=== PATIENT | male | born 1985 | race Caucasian/White ===

== ENCOUNTER 2023-06-04 11:49 | Emergency (ER) | payer OTHER, SELFPAY ==
--- NOTE | 2023-06-04 11:54 | ED.GENADULT ---
HPI - General Adult General Chief complaint: Animal Bite Stated complaint: cat bite Time Seen by Provider: 06/04/23 12:02 Source: patient Mode of arrival: ambulatory Limitations: no limitations History of Present Illness HPI narrative: 37-year-old male presents with cat bites and scratches to bilateral upper extremities, patient reports he was trying to get his cat carrier, the cat got mad and attacked him. CT is up-to-date on immunizations. Patient unclear when his last tetanus shot was. Denies numbness, tingling, fevers, chills, pain to extremities. Related Data Previous Rx's Medication Instructions Recorded azithromycin 250 mg tablet See Rx Instructions PO .COMPLEX #6 06/04/23 tabs doxycycline hyclate 100 mg capsule 100 mg PO BID 10 days #20 caps 06/04/23 Allergies Allergy/AdvReac Type Severity Reaction Status Date / Time penicillin V Allergy Unknown Verified 10/12/17 00:00 PENICILLIN Allergy Unknown Uncoded 01/12/17 00:00 Review of Systems Review of Systems: Yes all other systems are reviewed and are negative [facility] Past Medical History Attestation statement: The following information was validated with the patient. Source: old records reviewed and nursing notes reviewed Physical Exam ED Vital Signs: Vital Signs - 24 hr 06/04/23 11:57 Temperature 97.7 F Pulse Rate 92 Respiratory Rate 16 Blood Pressure 124/75 Pulse Oximetry 95 Oxygen Delivery Method Room Air BMI result Body Mass Index 17.2 vss Appearance: Alert.? Oriented X3.? No acute distress.? Head: Normocephalic, atraumatic, no step-offs or deformities Eyes: Pupils equal, round and reactive to light.? Neck: Normal inspection.? Neck supple.? CVS: Pulses normal.? Respiratory: No respiratory distress. Abdomen: Soft and nontender.? Skin: Skin warm and dry.? Normal skin color.? Normal skin turgor.? Extremities:5/5 strength to bilateral upper and lower extremities + multiple cat scratches to b/l hands and bites b/l 2+ radial pulses. Normal sensation distally. Normal cap refil. Neuro: Oriented X 3.? No motor deficit.? No sensory deficit. Course Reevaluation(s) Reevaluation #1: Patient to be discharged from the waiting room. Educated patient on diagnosis and treatment plan, answered all question, patient verbalizes understanding. At this time patient will be discharged home, advised to return with new or worsening symptoms. Educated on worrisome signs and symptoms and when to return. At this time I feel comfortable discharge home. Time: 12:06 Medical Decision Making Medical Decision Making [facility] Narrative: 1204 37-year-old male presents with cat bites and scratches to bilateral upper extremities. This happened prior to arrival Physical exam multiple cat bites and scratches to bilateral upper extremities. Neurovascular status intact History and physical exam concerning for cat bites and scratches. With the potential of them getting infected. No active signs of cellulitis at this time or lacerations requiring repair. No signs of neurovascular compromise or acute threat to limb. Unlikely fractures or dislocations. No signs of septic joint Plan at this time will discharge from triage with doxycycline as patient has amoxicillin allergy and will also cover with a Z-Milton. Differential Diagnosis Differential Diagnoses: The differential diagnosis associated with the presentation includes History and physical exam concerning for cat bites and scratches. With the potential of them getting infected. No active signs of cellulitis at this time or lacerations requiring repair. No signs of neurovascular compromise or acute threat to limb. Unlikely fractures or dislocations. Admission/Observation Consideration of admission/observation: Escalation of care including admission/observation considered No indication Tests considered The following testing was considered but not selected: No indication for labs. Prescription Management I considered prescription management with: Antibiotic Critical Care Time Critical Care Time Critical Care Time: No Discharge Plan Discharge Clinical Impression: Cat bite, Cat scratch Patient Disposition: Home, Self-Care Instructions: Animal Bite (ED) Additional Instructions: Take your medications as prescribed. If you were prescribed antibiotics today, it is important that you take your medication to their entirety, do not skip any doses, do not finish them early. Follow-up with your primary care provider this week. Return to the emergency department with new or worsening symptoms. In case of emergency call 911 Return w/ any signs of infection fevers, redness, drainage, pain swelling Prescriptions: New doxycycline hyclate 100 mg capsule 100 mg PO BID 10 Days Qty: 20 0RF azithromycin 250 mg tablet See Rx Instructions .ROUTE .COMPLEX Qty: 6 0RF Rx Instructions: For 250 mg dose pack: take 500 mg today (day 1), then 250 mg for 4 days (days 2-5) Referrals: Physician,Unknown J [Primary Care Provider] - 2 days
[2023-06-04 11:57] VITALS: BP 124/75; PULSE 92; RESP 16; TEMP 36.5; O2SAT 95; BMI 17.2
[2023-06-04] MEDS: Diphth,Pertus(ACell),Tet Adult 0.5 ML SYRINGE IM (12:19)
[2023-06-04 12:29] VITALS: BP 124/75; PULSE 92; RESP 16; TEMP 36.5; O2SAT 95
== END 2023-06-04 12:31 | disposition home or self-care (01) ==
PROVIDERS: Emergency Provider Student in an Organized Health Care Education/Training Program; PCP Family Medicine
DX: S41.152A Open bite of left upper arm, initial encounter (principal); S41.151A Open bite of right upper arm, initial encounter; S40.812A Abrasion of left upper arm, initial encounter; S40.811A Abrasion of right upper arm, initial encounter; W55.03XA Scratched by cat, initial encounter; Y93.89 Activity, other specified; Y92.9 Unspecified place or not applicable; Y99.9 Unspecified external cause status; Z88.0 Allergy status to penicillin
CPT/HCPCS: 90471; 90715; 99283; 99284

== ENCOUNTER 2023-08-27 14:20 | Emergency (ER) | payer BC, SELFPAY ==
[2023-08-27 14:39] VITALS: BP 134/76; PULSE 62; RESP 18; TEMP 36.6; O2SAT 98; BMI 17.8
--- NOTE | 2023-08-27 14:47 | ED.DENTAL ---
HPI - Dental/Oral General Chief complaint: Dental/Oral Stated complaint: dental pain Time Seen by Provider: 08/27/23 14:45 Source: patient Mode of arrival: ambulatory Limitations: no limitations History of Present Illness ED Provider: john MUIR Narrative: Patient is a 37-year-old male presenting to the emergency department with complaint dental pain to left lower jaw since Tuesday. Patient states pain is in the area where he has previously had a root canal and a crown. Denies any discharge or drainage from the area. Denies fevers. Denies any difficulty swallowing. Does report increased pain with chewing/eating. Has appointment with dentist on Tuesday. MD Complaint: tooth pain Teeth map: 1. Onset (ago): day(s) Duration: worsening Severity: severe Relieving factors: nothing Exacerbating factors: chewing Treatment prior to arrival: oral analgesic Related Data Previous Rx's ?Medication ?Instructions ?Recorded azithromycin 250 mg tablet See Rx Instructions PO .COMPLEX #6 06/04/23 tabs doxycycline hyclate 100 mg capsule 100 mg PO BID 10 days #20 caps 06/04/23 clindamycin HCl 150 mg capsule 150 mg PO TID #21 caps 08/27/23 clindamycin HCl 300 mg capsule 300 mg PO TID #21 caps 08/27/23 oxycodone 5 mg tablet 5 mg PO Q6H PRN severe pain (scale 08/27/23 score 7-10) #12 tabs Allergies Allergy/AdvReac Type Severity Reaction Status Date / Time penicillin V Allergy Unknown Rash Verified 08/27/23 14:41 PENICILLIN Allergy Unknown Rash Uncoded 08/27/23 14:41 Review of Systems Review of Systems: As per HPI Yes all other systems are reviewed and are negative Constitutional: Constitutional: Reports as per HPI Physical Exam Vital Signs: Vital Signs: Last Vital Signs Temp 98 F 08/27/23 14:39 Pulse 62 08/27/23 14:39 Resp 18 08/27/23 14:39 BP 134/76 08/27/23 14:39 Pulse Ox 98 08/27/23 14:39 O2 Del Method Room Air 08/27/23 14:39 BMI result Body Mass Index 17.8 Vital signs have been reviewed and appear to be correct. Blood pressure normal. Heart rate normal. Respiratory rate normal. Temperature normal. Oxygen saturation normal. Const: General: cooperative, healthy appearing and no acute distress Orientation/consciousness: oriented to person, oriented to place, oriented to time and patient oriented x3 Limitations: no limitations HEENT: Head: Yes normocephalic and Yes atraumatic Ears: external ears normal General nose exam: Normal external nose present Face and sinus: Yes face symmetric Mouth: Normal oral and palatal mucosa present, lip normal, tongue normal, oropharynx normal, moist mucous membranes, no drooling, no trismus and No restricted motion Teeth and gingiva: dentition normal and abnormal tooth and associated gingiva lower left tender; without associated gingival fluctuance Teeth image: 1. crown, gingival erythema, tenderness to palpation, no drainage Throat: Yes uvula midline Eyes: Pupils: Equal, round and reactive pupils present Neck: Neck: Yes normal visual inspection, Yes no lymphadenopathy and Yes supple Resp: Effort & Inspection: normal respiratory effort and able to speak in complete sentences Auscultation: clear to auscultation bilaterally Cardio: Rate: regular rate Rhythm: regular rhythm Heart sounds: S1 normal heart sound present and S2 normal heart sound present Skin: General skin exam: elasticity normal and turgor normal Neuro: General: oriented to person, oriented to place, oriented to time, patient oriented x3, moves all extremities, no focal motor deficits and CN's II-XI intact bilaterally Cranial nerves: Yes Equal, round and reactive pupils present Cognition (Neuro): normal cognition Extrem: General: Yes full ROM, Yes no pedal edema and Yes no calf tenderness Psych: Mental Status: mental status grossly normal Affect: normal affect Thought process: Normal thought process present Medical Decision Making Medical Decision Making [facility] Narrative: Patient is a 37-year-old male presenting to the emergency department with complaint dental pain to left lower jaw since Tuesday. On exam patient is awake, A+Ox3, VS WNL, afebrile, normal neurological exam without focal deficits, physical exam findings as above. Given reported symptoms and physical exam findings, initial differential includes dental pain, dental infection, dental abscess. No evidence of abscess on physical exam. Will treat with clindamycin as patient has PCN allergy, as well as oxycodone for severe pain. Advised patient to eat soft foods, swish with salt water, follow up with dental appointment. Return precautions discussed. Patient verbalized understanding of and agreement with plan. Differential Diagnosis Differential Diagnoses: The differential diagnosis associated with the presentation includes As per [facility] External Record Review External record reviewed: Inpatient record, Office record and Outpatient record Prescription Management I considered prescription management with: Pain Medication and Antibiotic Discharge Plan Discharge Clinical Impression: Toothache Patient Disposition: Home, Self-Care Instructions: Toothache (ED) Additional Instructions: You were evaluated in the emergency department today for complaint of dental pain. You are being treated for a dental infection with antibiotics. Please complete the full course of antibiotics as prescribed even if your symptoms improve. IT IS IMPORTANT THAT YOU FOLLOW UP WITH YOUR DENTIST. We recommend that you take 600 mg of ibuprofen or 650 mg Tylenol every 6 hours as needed for pain. If necessary, you can alternate these medications every 3 hours. For example, at 9:00 a.m. take Tylenol, then at noon take ibuprofen, then at 3:00 p.m. take Tylenol, etc.. You are being prescribed a short course of oxycodone for severe pain. Do not take this medication with alcohol. We recommend eating soft foods and avoid chewing on affected tooth. You can also gargle with salt water several times daily. Return to the emergency department if you develop worsening pain, swelling, difficulty swallowing, difficulty breathing, fever, or any other concerning symptoms. Prescriptions: New clindamycin HCl 300 mg capsule 300 mg PO TID Qty: 21 0RF Rx Instructions: Take with 150mg capsule for total dose of 450mg each dose clindamycin HCl 150 mg capsule 150 mg PO TID Qty: 21 0RF Rx Instructions: Take with 300mg capsule at each dose for total dose of 450mg oxycodone 5 mg tablet 5 mg PO Q6H PRN (Reason: severe pain (scale score 7-10)) Qty: 12 0RF Rx Instructions: Partial Fill upon patient request. No Action doxycycline hyclate 100 mg capsule 100 mg PO BID 10 Days Qty: 20 0RF azithromycin 250 mg tablet See Rx Instructions .ROUTE .COMPLEX Qty: 6 0RF Rx Instructions: For 250 mg dose pack: take 500 mg today (day 1), then 250 mg for 4 days (days 2-5) Print Language: Greek
[2023-08-27 15:12] VITALS: BP 134/76; PULSE 62; RESP 18; TEMP 36.6; O2SAT 98
== END 2023-08-27 15:15 | disposition home or self-care (01) ==
PROVIDERS: Emergency Provider Emergency Medicine; PCP Family Medicine
DX: K08.89 Other specified disorders of teeth and supporting structures (principal)
CPT/HCPCS: 99282; 99283

== ENCOUNTER 2024-05-22 13:45 | Emergency (ER) | payer BC, SELFPAY ==
--- NOTE | ~2024-05-22 | XR_ITS ---
EXAMINATION: XR ABDOMEN 1 VIEW (KUB) HISTORY: pain COMPARISON: There are no prior studies for comparison. FINDINGS: A single upright view of the abdomen is submitted. The bowel gas pattern is unremarkable, without evidence of mechanical obstruction. There is a phlebolith in the left hemipelvis. There are no abnormal soft tissue masses. The bones are intact. XR/XR KUB IMPRESSION: Unremarkable bowel gas pattern. Electronically signed by: Heladio Savage MD 05/22/2024 02:21 PM EDT
--- NOTE | ~2024-05-22 | CT_ITS ---
CLINICAL HISTORY: abd. pain v, R O SBO, history hernia repair CT abdomen and pelvis with contrast Comparison: CT - CT ABDOMEN PELVIS W IV CON - 05/22/24 19:09 EDT Findings: The lung bases are clear. The gallbladder and solid organs are within normal limits. No renal stones. No bowel obstruction, pneumoperitoneum, or pneumatosis. Pelvic contents unremarkable. Normal appendix. No acute fracture. IMPRESSION: No acute findings. No evidence of bowel obstruction. This document has been electronically signed by: An Queen MD on 05/22/2024 19:57:27
[2024-05-22 13:58] VITALS: BP 108/60; PULSE 53; RESP 20; TEMP 36.4; O2SAT 100; BMI 17.8
--- NOTE | 2024-05-22 13:59 | ED.GENADULT ---
HPI - General Adult General Chief complaint: Abdominal Pain Stated complaint: Dizziness, chest pain Time Seen by Provider: 05/22/24 18:07 Source: patient Mode of arrival: ambulatory Limitations: no limitations History of Present Illness ED Provider: DR. Hudson HPI narrative: 38-year-old male came in for evaluation of abdominal pain since this morning. Patient woke up this morning with mid abdominal pain and radiating burning pain to the chest, patient initially had nausea vomiting with the pain, had a normal bowel movement this morning before the vomiting started, passing flatus. Pain is localized to the mid abdomen with no radiation, vomiting has improved while waiting in the emergency department. No fever, no chills, no blood in the vomit or stool. Patient had similar pain twice in his life about 10 years ago require upper endoscopy patient reported inflammation in the stomach? Not on PPI. Currently patient feels cold. Related Data Previous Rx's ?Medication ?Instructions ?Recorded azithromycin 250 mg tablet See Rx Instructions PO .COMPLEX #6 06/04/23 tabs doxycycline hyclate 100 mg capsule 100 mg PO BID 10 days #20 caps 06/04/23 clindamycin HCl 150 mg capsule 150 mg PO TID #21 caps 08/27/23 clindamycin HCl 300 mg capsule 300 mg PO TID #21 caps 08/27/23 oxycodone 5 mg tablet 5 mg PO Q6H PRN severe pain (scale 08/27/23 score 7-10) #12 tabs omeprazole 40 mg capsule,delayed 40 mg PO DAILY #14 caps 05/22/24 release Allergies Allergy/AdvReac Type Severity Reaction Status Date / Time penicillin V Allergy Unknown Rash Verified 05/22/24 14:02 PENICILLIN Allergy Unknown Rash Uncoded 08/27/23 14:41 Review of Systems Review of Systems: all other systems are reviewed and are negative Constitutional: Reports as per HPI and Reports no additional constitutional complaints Eyes: Reports as per HPI and Reports no additional eye complaints Reports system reviewed and no additional complaints, except as documented Cardiovascular: Reports as per HPI and Reports no additional cardiovascular complaints Respiratory: Reports as per HPI and Reports no additional respiratory complaints Gastrointestinal: Reports as per HPI and Reports no additional gastrointestinal complaints Genitourinary: Reports no additional female genitourinary complaints Musculoskeletal: Reports no additional musculoskeletal complaints Skin/Breast: Reports system reviewed and no additional complaints, except as docu Psychiatric: Reports no additional psychiatric complaints Endocrine: Reports no additional endocrine complaints Hematologic/Lymphatic: Reports no additional hematologic/lymphatic complaints Allergic/Immunologic: Reports no additional allergic/immunologic complaints Reports system reviewed and no additional complaints, except as documented and Reports Abnormal speech present [facility] Social History Social History Smoked in Last 30 Days: No Use of substances other than those prescribed or required for medical reasons: No Advance Directives: No Advance Directives Information Provided: No Do you have a plan to hurt others: No Plan Physical Exam ED Vital Signs: Vital Signs - 24 hr 05/22/24 13:58 05/22/24 17:34 05/22/24 21:29 Temperature 97.5 F 98.7 F 98.5 F Pulse Rate 53 51 48 L Respiratory Rate 20 20 20 Blood Pressure 108/60 117/58 L 109/49 L Pulse Oximetry 100 100 99 Oxygen Delivery Method Room Air Room Air Room Air BMI result Body Mass Index 17.8 Vital signs have been reviewed and appear to be correct. Blood pressure elevated. Heart rate normal. Respiratory rate normal. Temperature normal. Oxygen saturation normal. Appearance: Alert. Oriented X3. No acute distress. Head: Normal external exam. Normocephalic. Atraumatic. No Roman signs noted. No raccoon eyes noted Eyes: PERRLA. EOMI. Conjunctiva and sclera normal. Eyelids normal. ENT: TM's Normal. Pharynx normal. Uvula midline. Moist mucous membranes. No trismus noted. No drooling noted. No muffled voice noted. Neck: Normal inspection. Neck supple. FROM. No adenopathy. Thyroid Normal. No meningeal signs. No neck mass noted. CVS: Normal heart rate and rhythm. Heart sound normal. No murmurs noted. Pulses normal throughout. Respiratory: No respiratory distress. Painless inspiration. Breath sounds normal. No wheezes/rales/rhonchi noted. Chest nontender. No accessory muscle usage noted or decreased air movement noted. Abdomen: Soft, mild mid abdominal tenderness, no rebound tenderness, no guarding.Bowel sounds normal in all 4 quadrants. No distention noted. No organomegaly noted. No visible injury noted. Back: No CVA tenderness. Full range of motion noted. Skin: Skin warm and dry. Normal skin color. Normal skin turgor. No rashes/lesions/lacerations noted. Extremities: No lower extremity edema. Extremities exhibit normal range of motion. Extremities nontender. Neuro: Oriented X 3. Cranial nerve exam: II-XII are grossly intact No motor deficit. No sensory deficit. Reflexes normal. Course Course Course Narrative: This is a rapid medical exam performed by Joan Drew PA-C. The patient was a 38-year-old male who presents with multiple complaints. Patient states he developed mid abdominal discomfort this morning with the associated intractable nausea vomiting. The pain radiates up into his chest, associated dizziness, ?body tingling?, and blurry vision. He admits to frequent marijuana use. We will be screening basic labs and a viral panel, and a screening KUB to rule out constipation. On exam the patient's abdomen is soft, nondistended nontender. He is unwilling to get up and stand out of his chair. The patient is stable and can return to the waiting room pending his full medical assessment. Reevaluation(s) Reevaluation #1: 38-year-old male came in for med abdominal pain and vomiting, patient has unremarkable CT abdomen and pelvis, labs are unremarkable physical exam is consistent with possible gastritis, patient was instructed to follow-up with securities clerk, avoid greasy/spicy food and will start on PPI. Time: 21:05 Reevaluation #2: patient is bradycardic in the emergency department with heart rate 45 hives, patient has no symptoms, no dizziness, no lightheadedness, no CP, no SOB, patient normally has a low heart rate when he had surgery for hernia he was told that his heart rate is low, EKG is showing normal sinus bradycardia at 46. Will continue with the discharge plan. Time: 21:48 Medications Administered Discontinued Medications Generic Name Dose Route Start Last Admin Trade Name Freq PRN Reason Stop Dose Admin Al Hydroxide/Mg Hydroxide 30 ml 05/22/24 18:15 05/22/24 18:34 Magnesium Hydrox/Alum Hydrox 30 Ml Oral.Susp PO 05/22/24 18:16 30 ml ONCE ONE Administration Famotidine 20 mg 05/22/24 18:15 05/22/24 18:34 Famotidine/Pf 20 Mg/2 Ml Vial IVPUSH 05/22/24 18:16 20 mg ONCE ONE Administration Sodium Chloride 1,000 mls @ 999 mls/hr 05/22/24 18:15 05/22/24 18:28 Ns IV 05/22/24 19:15 999 mls/hr .Q1H1M ONE Administration Acetaminophen 1,000 mg in 100 mls @ 400 mls/hr 05/22/24 18:40 05/22/24 18:48 Ofirmev IV 05/22/24 18:54 400 mls/hr ONCE ONE Administration Iohexol 100 ml 05/22/24 19:13 05/22/24 19:13 Iohexol 350 Mg/Ml 100 Ml Infus..Btl IV 05/22/24 19:14 85 ml ONCE ONE Administration Metoclopramide HCl 10 mg 05/22/24 17:42 05/22/24 17:46 Metoclopramide Hcl 10 Mg Tablet PO 05/22/24 17:43 10 mg ONCE ONE Administration Ondansetron HCl 4 mg 05/22/24 18:40 05/22/24 18:48 Ondansetron Hcl 4 Mg/2 Ml Vial IVPUSH 05/22/24 18:41 4 mg ONCE ONE Administration Medical Decision Making Differential Diagnosis Differential Diagnoses: The differential diagnosis associated with the presentation includes ( Gastritis, pancreatitis, colitis, acute appendicitis, complicated hernia, kidney stone, UTI, pyelonephritis, severe anemia, electrolyte derangement gallbladder disease, Less likely ACS.) Admission/Observation Consideration of admission/observation: Escalation of care including admission/observation considered Lab Data MDM Lab Attestation statement: I reviewed the patient's lab results. 05/22/24 14:13 05/22/24 14:13 Labs: Lab Results 05/22/24 05/22/24 05/22/24 Range/Units 14:13 18:28 20:21 WBC 8.3 (4.8-10.8) X10*3/uL RBC 4.69 (4.60-5.80) X10*6/uL Hgb 14.9 (14.0-18.0) g/dl Hct 40.4 L (42.0-52.0) % MCV 86.1 (80.0-98.0) fL MCH 31.8 (27.0-33.0) pg MCHC 36.9 H (31.0-36.0) g/dl RDW 11.8 (11.0-16.0) % Plt Count 211 (160-400) X10*3/uL MPV 9.7 (9.4-12.4) fL Immature Gran % (Auto) 0.2 (0.0-0.4) % Neut % (Auto) 85.8 H (45-73) % Lymph % (Auto) 11.6 L (20-40) % [place] % (Auto) 2.2 (2-11) % Eos % (Auto) 0.0 (0-4) % Baso % (Auto) 0.2 (0-2) % Lymph # (Auto) 1.0 L (1.2-4.9) X10*3/uL [place] # (Auto) 0.2 (0.1-1.2) X10*3/uL Eos # (Auto) 0.0 (0.0-0.4) X10*3/uL Baso # (Auto) 0.0 (0.0-0.2) X10*3/uL Abs Immat Gran (auto) 0.02 (0.00-0.03) X10*3/uL Absolute Neuts (auto) 7.1 (2.0-8.3) x10*3/uL Absolute Nucleated RBC 0.000 (0.0-0.012) X10*3/uL Nucleated RBC % (auto) 0.0 (0.0-0.2) /100WBC Sodium 139 (135-145) mmol/L Potassium 4.3 (3.3-5.1) mmol/L Chloride 105 (96-108) mmol/L Carbon Dioxide 21 L (22-29) mmol/L Anion Gap 17 (12-20) BUN 17 H (9-16) mg/dL Creatinine 0.81 (0.5-1.4) mg/dL Estim Creat Clear Calc 108.1 Estimated GFR > 60 Random Glucose 120 H (60-115) mg/dL Calcium 9.7 (8.4-10.2) mg/dL Magnesium 1.9 (1.6-2.6) mg/dL Total Bilirubin 0.9 (0.0-1.0) mg/dL AST 46 H (5-37) U/L ALT 29 (0-40) U/L Alkaline Phosphatase 39 (39-117) U/L Troponin I High Sens < 2.7 (<3.5-35.0) ng/L Total Protein 7.7 (6.5-8.0) g/dL Albumin 4.7 (3.5-5.0) g/dL Lipase 21 (8-78) U/L Urine Color Yellow Urine Appearance Clear Urine pH >= 9.0 (5.0-9.0) Ur Specific [place] >= 1.030 H (1.005-1.025) Urine Protein 30 (1+) H (Neg-Trace) mg/dL Urine Glucose (UA) Negative (Negative) mg/dL Urine Ketones >=160 (Negative) mg/dL Urine Blood Negative (Negative) Urine Nitrite Negative (Negative) Ur Leukocyte Esterase Negative (Negative) Urine RBC 0-2 (0-2) /HPF Urine WBC 0-5 (0-5) /HPF Ur Squamous Epith Cells 0-2 (0-2) /HPF Urine Bacteria None Seen (None Seen) Hyaline Casts 0-2 (0-2) /LPF Influenza Type A (PCR) NEGATIVE (Negative) Influenza Type B (PCR) NEGATIVE (Negative) RSV RNA Qual (PCR) NEGATIVE (Negative) SARS-CoV-2 RNA (RT-PCR) NEGATIVE (Negative) Independent Interpretation I performed an independent interpretation of an: Plain X-Ray ( KUB: Unremarkable bowel gas pattern.) and CT Scan ( Abdomen pelvis:No acute findings. No evidence of bowel obstruction.) Radiology Impression Discussion of test interpretation with radiology: I have reviewed the radiologist's reading. Discharge Plan Discharge Clinical Impression: Abdominal pain, Gastritis Patient Disposition: Home, Self-Care Instructions: Gastritis (ED) Prescriptions: New omeprazole 40 mg capsule,delayed release(DR/EC) 40 mg PO DAILY Qty: 14 0RF No Action doxycycline hyclate 100 mg capsule 100 mg PO BID 10 Days Qty: 20 0RF azithromycin 250 mg tablet See Rx Instructions .ROUTE .COMPLEX Qty: 6 0RF Rx Instructions: For 250 mg dose pack: take 500 mg today (day 1), then 250 mg for 4 days (days 2-5) clindamycin HCl 300 mg capsule 300 mg PO TID Qty: 21 0RF Rx Instructions: Take with 150mg capsule for total dose of 450mg each dose clindamycin HCl 150 mg capsule 150 mg PO TID Qty: 21 0RF Rx Instructions: Take with 300mg capsule at each dose for total dose of 450mg oxycodone 5 mg tablet 5 mg PO Q6H PRN (Reason: severe pain (scale score 7-10)) Qty: 12 0RF Rx Instructions: Partial Fill upon patient request. Referrals: Aj Zapata MD [Primary Care Provider] - Sho Trujillo MD [Physician] - Print Language: Cambodian
[2024-05-22 14:19] LABS: MANUAL DIFF FLAG NO
[2024-05-22 14:21] LABS: Basophils Percent Auto 0.2 % (0-2); Hematocrit 40.4 % (42.0-52.0); Hemoglobin 14.9 g/dl (14.0-18.0); Imm Gran Abs Auto 0.02 X10*3/uL (0.00-0.03); Imm Gran Pct Auto 0.2 % (0.0-0.4); Lymphocytes Percent Auto 11.6 % (20-40); Mean Corpuscular HGB Conc 36.9 g/dl (31.0-36.0); Mean Corpuscular Hemoglobin 31.8 pg (27.0-33.0); Mean Corpuscular Volume 86.1 fL (80.0-98.0); Mean Platelet Volume 9.7 fL (9.4-12.4); Monocytes Absolute Auto 0.2 X10*3/uL (0.1-1.2); Monocytes Percent Auto 2.2 % (2-11); Neutrophils Absolute Auto 7.1 x10*3/uL (2.0-8.3); Neutrophils Percent Auto 85.8 % (45-73); Platelet Count 211 X10*3/uL (160-400); Red Blood Count 4.69 X10*6/uL (4.60-5.80); Red Cell Distribution Width 11.8 % (11.0-16.0); White Blood Count 8.3 X10*3/uL (4.8-10.8)
[2024-05-22 14:38] LABS: Alanine Aminotransferase 29 U/L (0-40); Albumin Level 4.7 g/dL (3.5-5.0); Alkaline Phosphatase 39 U/L (39-117); Anion Gap 17 (12-20); Aspartate Amino Transferase 46 U/L (5-37); Bilirubin Total 0.9 mg/dL (0.0-1.0); Blood Urea Nitrogen 17 mg/dL (9-16); Calcium 9.7 mg/dL (8.4-10.2); Carbon Dioxide 21 mmol/L (22-29); Chloride 105 mmol/L (96-108); Creatinine Clr Calc Pharmacy 108.1; Estimated Glomerular Filt Rate > 60; Glucose Random 120 mg/dL (60-115); Lipase 21 U/L (8-78); Magnesium 1.9 mg/dL (1.6-2.6); Potassium 4.3 mmol/L (3.3-5.1); Sodium 139 mmol/L (135-145); Total Protein 7.7 g/dL (6.5-8.0)
[2024-05-22 15:09] LABS: Influenza A PCR NEGATIVE (Negative); Influenza B PCR NEGATIVE (Negative); Resp Syncy Virus RNA Qual PCR NEGATIVE (Negative); SARS COV2 PCR INHOUSE NEGATIVE (Negative)
[2024-05-22 17:34] VITALS: BP 117/58; PULSE 51; RESP 20; TEMP 37.1; O2SAT 100
[2024-05-22] MEDS: Metoclopramide HCl 10 MG TABLET PO (17:46)
[2024-05-22] MEDS: 0.9 % Sodium Chloride 1,000 ML 999 ML IV (18:28)
[2024-05-22] MEDS: Magnesium Hydrox/Alum Hydrox 30 ML ORAL.SUSP PO (18:34)
[2024-05-22] MEDS: Famotidine/PF 20 MG/2 ML VIAL IVPUSH (18:34)
[2024-05-22] MEDS: ondansetron HCL 4 MG/2 ML VIAL IVPUSH (18:48)
[2024-05-22] MEDS: Acetaminophen 1,000 MG/100 ML PIGGYBACK 400 MG IV (18:48)
[2024-05-22 18:54] LABS: Troponin-I High Sensitivity < 2.7 ng/L (<3.5-35.0)
[2024-05-22] MEDS: iohexoL 350 MG/ML 100 ML INFUS..BTL IV (19:13)
[2024-05-22 20:33] LABS: Appearance Urine Clear; Color Urine Yellow; Glucose Urine UA Negative (Negative); Leukocyte Esterase Urine Negative (Negative); Nitrite Urine Negative (Negative); PH >= 9.0 (5.0-9.0); Specific Gravity - Urine >= 1.030 (1.005-1.025); UMIC TRIGGER UACC YES; Urine Blood Negative (Negative); Urine Ketones >=160 mg/dL (Negative); Urine Protein 30 (1+) mg/dL (Neg-Trace)
[2024-05-22 20:49] LABS: Bacteria Urine None Seen (None Seen); Hyaline Casts Urine 0-2 /LPF (0-2); RBC Urine 0-2 /HPF (0-2); Squamous Epithelial Cell Urine 0-2 /HPF (0-2); WBC Urine 0-5 /HPF (0-5)
[2024-05-22 21:29] VITALS: BP 109/49; PULSE 48; RESP 20; TEMP 36.9; O2SAT 99
--- NOTE | 2024-05-22 21:29 | ECG_ITS ---
Test Reason : BRADYCARDIA Blood Pressure : */* mmHG Vent. Rate : 46 BPM Atrial Rate : 46 BPM P-R Int : 126 ms QRS Dur : 106 ms QT Int : 492 ms P-R-T Axes : 53 81 72 degrees QTcB Int : 430 ms Sinus bradycardia with sinus arrhythmia Incomplete right bundle branch block Borderline ECG When compared with ECG of 22-May-2024 13:50, NE interval has increased Referred By: Alan Hudson Electronically Signed By: Jonn Wilkerson
[2024-05-22 21:55] VITALS: BP 109/49; PULSE 48; RESP 20; TEMP 36.9; O2SAT 99
== END 2024-05-22 21:56 | disposition home or self-care (01) ==
PROVIDERS: Physician Assistant Medical; Emergency Provider Emergency Medicine; PCP Family Medicine
DX: R10.9 Unspecified abdominal pain (principal); R11.2 Nausea with vomiting, unspecified; K29.70 Gastritis, unspecified, without bleeding; Z03.818 Encounter for observation for suspected exposure to other biological agents ruled out
CPT/HCPCS: 0241U; 36415; 74018; 74177; 80053; 81001; 83690; 83735; 84484; 85025; 93005; 96374; 96375; 99285; J0131; J2405; Q9967

== ENCOUNTER → 2024-05-22 14:02 | Outpatient (BNV) | payer BC, SELFPAY | PROVIDERS: PCP Family Medicine; Visit Provider Radiology Diagnostic Radiology | DX: R10.9 Unspecified abdominal pain (principal); R11.10 Vomiting, unspecified | CPT/HCPCS: 74018; 74177 ==

== ENCOUNTER → 2024-05-22 21:38 | Outpatient (BNV) | payer BC, SELFPAY | PROVIDERS: Emergency Provider Emergency Medicine; PCP Family Medicine; Visit Provider Internal Medicine Cardiovascular Disease | DX: I45.10 Unspecified right bundle-branch block (principal); I49.9 Cardiac arrhythmia, unspecified | CPT/HCPCS: 93010 ==

== ENCOUNTER 2025-03-06 10:17 | Emergency (ER) | payer OTHER, BC, SELFPAY ==
--- NOTE | ~2025-03-06 | XR_ITS ---
EXAMINATION: XR KNEE, LEFT CLINICAL INFORMATION: L knee pain COMPARISON: None available. TECHNIQUE: Four views of the left knee. FINDINGS: No fracture or joint effusion. Alignment is anatomic. Joint spaces are maintained. No abnormal soft tissue calcification. XR/XR knee LT 4V IMPRESSION: Unremarkable left knee exam Electronically signed by: Quang Harrison MD 03/06/2025 11:02 AM [facility] [place]
--- NOTE | 2025-03-06 10:28 | ED_ITS ---
HPI - Extremity Injury (Lower) General Chief Complaint: Extremity Problem Stated Complaint: L knee inj at work on tuesday Time Seen by Provider: 03/06/25 11:09 Source: patient, RN notes reviewed and old records reviewed Mode of arrival: ambulatory History of Present Illness ED Provider: Marleny White PA-C HPI Narrative: 39-year-old male with no significant past medical history presenting to the ED complaining of atraumatic left knee pain x6 days, worse with walking upstairs/strenuous exercise. Denies known injury, direct injury/fall or trauma. Patient is amber states he has been walking on uneven/icy surfaces, may have twisted. Denies fever, chills. Related Data Previous Rx's ?Medication ?Instructions ?Recorded azithromycin 250 mg tablet See Rx Instructions PO .COM PLEX #6 06/04/23 tabs doxycycline hyclate 100 mg capsule 100 mg PO BID 10 da ys #20 caps 06/04/23 clindamycin HCl 150 mg capsule 150 mg PO TID #21 caps 08/27/23 clindamycin HCl 300 mg capsule 300 mg PO TID #21 caps 08/27/23 oxycodone 5 mg tablet 5 mg PO Q6H PRN severe pain (scale 08/27/23 score 7-10) #12 tabs omeprazole 40 mg capsule,delayed 40 mg PO DAILY #14 ca ps 05/22/24 release acetaminophen 500 mg tablet 500 mg PO Q6H PRN fever or pain 03/06/25 (Tylenol Extra Strength) #14 tabs naproxen 500 mg tablet 500 mg PO BID PRN pain 10 da ys #20 03/06/25 tabs Allergies Allergy/AdvReac Type Severity Reaction Status Date / Time penicillin V Allergy Unknown Rash Verified 03/06/25 10:29 PENICILLIN Allergy Unknown Rash Uncoded 08/27/23 14:41 Review of Systems Review of Systems: Yes all other systems are reviewed and are negative Constitutional: Constitutional: Reports as per [facility] Past Medical History Attestation statement: The following information was validated with the patient. Source: old records reviewed Social History Social History Advance Directives: No Advance Directives Information Provided: Yes Physical Exam Vital Signs: Vital Signs: Last Vital Signs Temp 98.2 F 03/06/25 10:29 Pulse 77 03/06/25 10:29 Resp 16 03/06/25 10:29 BP 105/52 L 03/06/25 10:29 Pulse Ox 99 03/06/25 10:29 O2 Del Method Room Air 03/06/25 10:29 BMI result Body Mass Index 18.6 Const: General: cooperative, healthy appearing and no acute distress Orientation/consciousness: patient oriented x3 Limitations: no limitations HEENT: Head: Yes normal to inspection and Yes atraumatic Ears: hearing grossly normal bilaterally General nose exam: Normal external nose present Face and sinus: Yes normal facial exam Eyes: General: appearance normal, both eyes and all related structures EOM: EOMs intact bilaterally Neck: Neck: Yes normal visual inspection and Yes no meningeal signs Resp: Effort & Inspection: normal respiratory effort and no respiratory distress Cardio: Rate: regular rate Skin: Rashes: no rashes Wounds: no wounds Neuro: General: patient oriented x3, tone normal and no meningeal signs Cranial nerves: Yes CN's II-XII intact bilaterally Gait exam (Neuro): Normal gait present Extrem: Other: No appreciable deformity. Left knee with mild tenderness to lateral aspect. ROM intact with discomfort. Neurovascularly intact distally. No erythema or warmth General: Yes normal to inspection Course Course Course Narrative: This is a Rapid Medical Exam performed in triage by Marleny White PA-C. Full HPI, ROS and PE to be performed by primary ED provider. 39 yo M presenting to the ED c/o left knee pain x6 days. Worse with movement & going up & down stairs. denies injury/fall - may have slipped on snow working PE: +L knee ttp. no deformity. No erythema. NV intact distally Plan: XR Medical Decision Making Medical Decision Making MDM Narrative: 39-year-old male with no significant past medical history presenting to the ED complaining of atraumatic left knee pain x6 days, worse with walking upstairs/st renuous exercise. On exam vital signs stable, NAD, nontoxic appearing, physical exam as noted above. Concern for strain vs meniscal vs ligamental injury. Lower suspicion for fracture. No evidence of septic joint/arthritis or compartment syndrome Plan: X-ray Please refer to course for remaining clinical decision making, interpretation of labs/imaging results, and discussions with consultants and/or family members. Differential Diagnosis Differential Diagnoses: The differential diagnosis associated with the presentation includes As above Independent Interpretation I performed an independent interpretation of an: Plain X-Ray Radiology Impression Discussion of test interpretation with radiology: I have reviewed the radiologist's reading. External Record Review External record reviewed: Inpatient record, Office record, Outpatient record, Prior outpatient labs, Prior outpatient radiology, Primary care record and Outside ED record Tests considered The following testing was considered but not selected: As above Prescription Management I considered prescription management with: Pain Medication Chronic Conditions Patient?s care impacted by: Other Social Determinants Patient?s care significantly limited by Social Determinants of Health including: Other Social Determinant of Health Procedures Orthopedic Splinting/Casting Injury #1: Side: left Lower Extremity Injury Location: knee Lower Extremity Immobilizer: knee immobilizer (Hinged knee brace) Discharge Plan Discharge Clinical Impression: Strain of left knee Patient Disposition: Home, Self-Care Instructions: Knee Pain (ED) Additional Instructions: Your x-rays unremarkable Ice and elevate Wear hinged knee brace as needed for comfort and stability Take Tylenol and naproxen for pain and swelling Please follow up with Orthopedics and your primary care doctor If symptoms persist or worsens/pain becomes unbearable return to the emergency department Prescriptions: New acetaminophen [Tylenol Extra Strength] 500 mg tablet 500 mg PO Q6H PRN (Reason: fever or pain) Qty: 14 0RF naproxen 500 mg tablet 500 mg PO BID PRN (Reason: pain) 10 Days Qty: 20 0RF No Action doxycycline hyclate 100 mg capsule 100 mg PO BID 10 Days Qty: 20 0RF azithromycin 250 mg tablet See Rx Instructions .ROUTE .COMPLEX Qty: 6 0RF Rx Instructions: For 250 mg dose pack: take 500 mg today (day 1), then 250 mg for 4 days (days 2-5) clindamycin HCl 300 mg capsule 300 mg PO TID Qty: 21 0RF Rx Instructions: Take with 150mg capsule for total dose of 450mg each dose clindamycin HCl 150 mg capsule 150 mg PO TID Qty: 21 0RF Rx Instructions: Take with 300mg capsule at each dose for total dose of 450mg oxycodone 5 mg tablet 5 mg PO Q6H PRN (Reason: severe pain (scale score 7-10)) Qty: 12 0RF Rx Instructions: Partial Fill upon patient request. omeprazole 40 mg capsule,delayed release(DR/EC) 40 mg PO DAILY Qty: 14 0RF Referrals: [facility] [place] Orthopedic Surgeons [Provider Group] - 1 week Aj Zapata MD [Primary Care Provider, Internal Medicine] - 1 week Stand Alone Forms: Work/School Release Print Language: Azerbaijani
[2025-03-06 10:29] VITALS: BP 105/52; PULSE 77; RESP 16; TEMP 36.8; O2SAT 99; BMI 18.6
[2025-03-06 11:44] VITALS: BP 105/52; PULSE 77; RESP 16; TEMP 36.8; O2SAT 99
== END 2025-03-06 11:45 | disposition home or self-care (01) ==
PROVIDERS: Emergency Provider Emergency Medicine Emergency Medical Services; PCP Family Medicine
DX: S86.912A Strain of unspecified muscle(s) and tendon(s) at lower leg level, left leg, initial encounter (principal); M25.562 Pain in left knee; X50.1XXA Overexertion from prolonged static or awkward postures, initial encounter; Y93.89 Activity, other specified; Y92.89 Other specified places as the place of occurrence of the external cause; Y99.0 Civilian activity done for income or pay
CPT/HCPCS: 73564; 99282; 99283

== ENCOUNTER → 2025-03-06 10:29 | Outpatient (BNV) | payer OTHER, SELFPAY | PROVIDERS: Emergency Provider Emergency Medicine Emergency Medical Services; PCP Family Medicine; Visit Provider Radiology Diagnostic Radiology | DX: M25.562 Pain in left knee (principal) | CPT/HCPCS: 73564 ==